=== PATIENT | female | born 1995 | race Caucasian/White ===

== ENCOUNTER 2018-03-01 13:58 | Emergency (ER) | payer MEDICAID ==
[~2018-03-01] VITALS: Ht 175.3 cm; Wt 89.0 kg
[2018-03-01 14:03] VITALS: BP 126/59
[2018-03-01] MEDS ORDERED: ACYC-202 PO (14:29)
== END 2018-03-01 14:55 | disposition home or self-care (01) ==
LOC: ER 13:59
DX: O98.811 Other maternal infectious and parasitic diseases complicating pregnancy, first trimester (principal); L08.9 Local infection of the skin and subcutaneous tissue, unspecified; Z3A.13 13 weeks gestation of pregnancy; Z79.899 Other long term (current) drug therapy
CPT/HCPCS: 99283

== ENCOUNTER 2018-11-12 20:58 | Emergency (ER) | payer MEDICAID ==
[~2018-11-12] VITALS: Ht 175.3 cm; Wt 100.0 kg
[2018-11-12] MEDS ORDERED: ondansetron 4mg rapidly disintigrating tab PO ONE (21:50)
[2018-11-12 22:25] LABS: BASOPHILS # (AUTO) 0.1 X10'3 (0-0.2); BASOPHILS % (AUTO) 0.7 % (0-1); EOSINOPHILS # (AUTO) 0.1 X10'3 (0-0.9); EOSINOPHILS % (AUTO) 0.8 % (0-6); HEMATOCRIT 33.8 % (35.0-45.0); HEMOGLOBIN 11.4 g/dl (12.0-16.0); LYMPHOCYTES # (AUTO) 1.6 X10'3 (1.1-4.8); LYMPHOCYTES % (AUTO) 21.5 % (21-51); MEAN CORPUSCULAR HEMOGLOBIN 29.1 PG (27.0-31.0); MEAN CORPUSCULAR HGB CONC 33.8 g/dL (33.0-36.5); MEAN CORPUSCULAR VOLUME 85.9 FL (78-98); MEAN PLATELET VOLUME 9.3 FL (7.4-10.4); MONOCYTES # (AUTO) 0.7 X10'3 (0-0.9); MONOCYTES % (AUTO) 9.9 % (2-12); NEUTROPHILS # (AUTO) 5.1 X10'3 (1.8-7.7); NEUTROPHILS % (AUTO) 67.1 % (42-75); PLATELET COUNT 225 X10'3 (140-440); RED BLOOD COUNT 3.93 X10'6 (4.20-5.60); RED CELL DISTRIBUTION WIDTH 13.4 % (11.5-14.5); WHITE BLOOD COUNT 7.6 X10'3 (4.5-11.0)
[2018-11-12 22:35] LABS: URINE HCG NEGATIVE (NEG)
[2018-11-12 22:36] LABS: ALANINE AMINOTRANSFERASE 23 U/L (12-78); ALBUMIN 3.5 G/DL (3.4-5.0); ALBUMIN/GLOBULIN RATIO 1.1 (1.1-1.5); ALKALINE PHOSPHATASE 81 IU/L (46-116); ANION GAP 5 (8-16); ASPARTATE AMINO TRANSFERASE 13 U/L (10-37); BILIRUBIN,TOTAL 0.2 MG/DL (0.1-1.0); BLOOD UREA NITROGEN 8 MG/DL (7-18); BUN/CREATININE RATIO 11.1 (6.6-38.0); CALCIUM 8.7 MG/DL (8.5-10.1); CHLORIDE 108 MMOL/L (99-107); CREATININE 0.72 MG/DL (0.40-0.90); GLUCOSE 107 MG/DL (70-104); POTASSIUM 3.6 MMOL/L (3.5-5.1); SODIUM 141 MMOL/L (135-145); TOTAL CARBON DIOXIDE 27.6 MMOL/L (24-32); TOTAL PROTEIN 6.8 G/DL (6.4-8.2); eGFR > 90 ML/MIN
[2018-11-12 22:46] LABS: ETHANOL < 0.010 GM/DL (0.0-0.010)
[2018-11-12 22:47] LABS: URINE AMPHETAMINE SCREEN NEGATIVE (Neg); URINE BARBITUATE SCREEN NEGATIVE (Neg); URINE BENZODIAZEPINES SCREEN NEGATIVE (Neg); URINE CANNABINOID SCREEN NEGATIVE (Neg); URINE COCAINE SCREEN NEGATIVE (Neg); URINE METHADONE SCREEN NEGATIVE (Neg); URINE OPIATE SCREEN POSITIVE (Neg); URINE PHENCYCLIDINE SCREEN NEGATIVE (Neg)
[2018-11-12 22:54] LABS: ACETAMINOPHEN < 2.0 UG/ML (10-30)
--- NOTE | 2018-11-12 23:19 | NUR ---
Call placed to Poison Control, endorsed patient's cc, assessment and labs. Rec. repeat tylenol level 2 hours after initial, if negative, "released from poison control-toxic standpoint"
--- NOTE | 2018-11-13 02:22 | NUR ---
Rec'd call from poison control, updated on assessment, "cleared" by them, at this time.
--- NOTE | 2018-11-13 02:38 | NUR ---
Resting in bed, appears to sleep soundly, easily aroused. Denies needs, vitals taken, will monitor.
--- NOTE | 2018-11-13 08:18 | NUR ---
PT MOTHER CALLED FOR UPDATE, INFORMED PT IS STABLE AND SLEEPING, TO BE EVALUATED BY [facility] TODAY.
--- NOTE | 2018-11-13 08:27 | NUR ---
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
--- NOTE | 2018-11-13 10:10 | NUR ---
PT AWAKE AND EATING BREAKFAST TRAY. PT IS ASKING FOR A PHONE TO MAKE CALL TO WORK AND FAMILY. PT INFORMED OF 1798 STATUS AND PLAN OF CARE FOR TODAY. PT AGREEABLE TO PLAN.
--- NOTE | 2018-11-13 13:49 | NUR ---
[facility] JOAN AT BEDSIDE EVALUATING PT
--- NOTE | 2018-11-13 16:00 | NUR ---
Received report from [facility] Tracey. Pt brought to overflow on a 5150 for DTS after an OD on norco and ETOH last night. Per report pt attempted to OD the night before and was interrupted by her BF who stopped her. Pt reports suffering from depression for the past 2-3 months. She sought out help at [facility] and was given an antidepressant then never started it "I couldn't find it that night." Pt is tearful. She is requesting to go outside "I need sunlight." She is tearful and stresses "I only want to go home and see my daughter." PRN of Ativan offered pt refuses and states, "I don't need medicine I need to go home." Education provided on treatment for depression involving medications. Pt continues to refuse any PO meds that will help her calm down.
--- NOTE | 2018-11-13 16:55 | NUR ---
Pt sitting on her bed legs drawn up arms crossed over her knees looking staring out into the room
--- NOTE | 2018-11-13 17:08 | NUR ---
Visitor named Kristin here to visit. Pt continues to cry.
[2018-11-13] MEDS ORDERED: haloperidol 5mg tablet PO PRN (17:25)
[2018-11-13] MEDS ORDERED: LORazepam 1 MG tablet PO PRN (17:25)
[2018-11-13] MEDS ORDERED: diphenhydrAMINE 25mg capsule PO PRN (17:25)
--- NOTE | 2018-11-13 17:29 | NUR ---
TIGRE RN REQUESTING PRN MEDICATIONS FOR PT AGITATION, VERBAL ORDER FROM DR CARDONA ATIVAN 2 MG PO PRN DAILY, 50 MG BENADRYL PO PRN DAILY, 5 MG HALDOL PRN DAILY
--- NOTE | 2018-11-13 19:49 | NUR ---
called pt into telepsych queue, monitor in room waiting for consult
--- NOTE | 2018-11-14 08:28 | NUR ---
The patient is still sleeping, has been up to bathroom. No distress
--- NOTE | 2018-11-14 10:56 | NUR ---
The patient is requesting to talk with [facility] again, wanting to be released. Up to bathroom, ate a bit of breakfast. Depressed mood blunted affect. No distress
--- NOTE | 2018-11-14 12:30 | NUR ---
Depressed, angry about being on 5150. Attempts to educate patient to understanding of Hold and who makes that decision was done, but patient remained angry and wants to leave.
--- NOTE | 2018-11-14 13:30 | NUR ---
The patient asked for a grievance form which was provided and she filled out, put in front of chart where [facility] will see tomorrow. Leno at [place] office was contacted and informed.
--- NOTE | 2018-11-14 14:15 | NUR ---
The patient's mother called and talked with the patient. Patient informed this nurse mother would be calling and gave permission to give information. Mother called, Hold situation was explained. Mother kept interrupting and arguing. It was explained that [facility] are the Hold decision makers, she accused this nurse of being unfair and biased because her daughter "is black and on [employer]." She became irate and unreasonable and the conversation was ended. She was given the [place] office phone number.
--- NOTE | 2018-11-14 15:38 | NUR ---
The patient is having a visit with her friend Kristin. Good interaction.
--- NOTE | 2018-11-14 17:47 | NUR ---
Mother is at bedside visiting, brought books and magazines. The patient is conversing with her mother. Irritable mood.
--- NOTE | 2018-11-14 18:36 | NUR ---
Report rec'd, assumed care. Sitting up in bed, eating dinner, talking with neighboring patient. Calm and pleasant at this time. Will continue to monitor.
--- NOTE | 2018-11-14 19:04 | NUR ---
Noted that patient had a necklace on, yellow-tarnished chain with yellow-tarnished cross. Requested patient remove the necklace, she complied, and the necklace was placed with her other belongings and added to belongings log.
--- NOTE | 2018-11-14 19:08 | NUR ---
In bed awake, talking on the phone with her mother. Verbalizing complaints, monitoring conversation for escalation and will intervene as indicated.
--- NOTE | 2018-11-14 20:28 | NUR ---
Laying in bed awake. No new concerns issued. Will monitor.
--- NOTE | 2018-11-14 21:33 | NUR ---
Laying in bed, awake, reading. Will continue to monitor.
--- NOTE | 2018-11-14 22:30 | NUR ---
Laying in bed awake, reading quitely. Will continue to monitor.
--- NOTE | 2018-11-14 23:50 | NUR ---
Resting in bed, appearing to sleep, will monitor.
--- NOTE | 2018-11-15 00:32 | NUR ---
Laying in bed on side, awake but appearing to rest comfortable. No new issues or concerns noted at this time, will continue to monitor.
--- NOTE | 2018-11-15 01:43 | NUR ---
Laying in bed, resting with eyes closed. Resp even and unlabored, appearing to sleep. Will continue to monitor.
--- NOTE | 2018-11-15 02:50 | NUR ---
In bed, awake, reading, no complaints voiced, will monitor.
--- NOTE | 2018-11-15 03:43 | NUR ---
Laying in bed, resting, appearing to sleep, will monitor.
--- NOTE | 2018-11-15 04:55 | NUR ---
Resting in bed, appearing to sleep.
[2018-11-15 05:30] VITALS: BP 105/58
--- NOTE | 2018-11-15 05:40 | NUR ---
Vital signs taken, no issues noted, will monitor.
--- NOTE | 2018-11-15 06:47 | NUR ---
Recieved Pt in bed sleeping without ditress.
--- NOTE | 2018-11-15 09:00 | NUR ---
Pt awake at nurses station talking with RN about seeing [facility] personnel. Explained when her 5150 hold would end and process for finding an in patient bed. Concerned about 2 mos old daughter being cared for by others.
--- NOTE | 2018-11-15 09:00 | NUR ---
Vickie montgomery in [facility] - 11/15/18 at 1159 by [email or web address] Pt awake at nurse station asking about seeing a [place]
--- NOTE | 2018-11-15 11:00 | NUR ---
Pt anxious and wanting to walk around overflow. Does not want a prn for anxiety. Talked with RN and allowed to walk around overflow for a few minutes.
--- NOTE | 2018-11-15 12:57 | NUR ---
ALO FROM [facility]. PATIENT HAS BEEN ACCEPTED TO THE [facility] WITH DR. FLOWERS ACCEPTING. ANTICIPATED TRANSFER TIME TO [facility] WITHIN THE NEXT 1-2 HOURS.
[2018-11-15] MEDS ORDERED: ibuprofen tablet 400 MG TABLET PO ONE (14:35)
[2018-11-15] MEDS ORDERED: DOCU-20 PO (16:49)
[2018-11-15] MEDS ORDERED: FLUT16SP2 BOTHNARES (16:49)
[2018-11-15] MEDS ORDERED: NYST30CR2 TP (16:49)
[2018-11-15] MEDS ORDERED: FERR325T28 PO (16:49)
[2018-11-15] MEDS ORDERED: PNV1TABL75 PO (16:49)
[2018-11-15] MEDS ORDERED: DIPH25CA83 PO (16:49)
[2018-11-15] MEDS ORDERED: SERT25TA PO (16:49)
[2018-11-15] MEDS ORDERED: FOLI0.4T2 PO (16:49)
[2018-11-15] MEDS ORDERED: LORA10TA65 PO (16:49)
[2018-11-15] MEDS ORDERED: IBUP-1984 PO (16:49)
== END 2018-11-15 15:00 ==
LOC: ER 20:58
DX: F32.9 Major depressive disorder, single episode, unspecified (principal); R44.0 Auditory hallucinations; R44.1 Visual hallucinations
CPT/HCPCS: 36415; 80053; 80305; 80320; 80329; 81025; 84443; 85025; 99285; Q0163

== ENCOUNTER 2018-11-15 13:03 | Inpatient (IN) | payer MEDICAID | END 2018-11-18 14:30 | disposition still patient (30) | LOC: ADULT MH 13:03 | DX: T40.2X2A Poisoning by other opioids, intentional self-harm, initial encounter (principal); F32.9 Major depressive disorder, single episode, unspecified ==